=== PATIENT | female | born 1935 | race African-American/Black ===

== ENCOUNTER 2018-09-24 22:55 | Observation (INO) | payer MEDICARE, MEDICAID ==
[2018-09-25 00:51] VITALS: BMI 28.3
[2018-09-25] MEDS ORDERED: Acetaminophen 325 MG TAB PO PRN (00:52)
[2018-09-25 03:00] LABS: Cardiac Risk 4.5 (Less than 4.5)
[2018-09-25 03:04] LABS: Troponin I Less than 0.010 ng/mL (< 0.028)
[2018-09-25] MEDS ORDERED: Aspirin 325 MG TAB PO SCH (09:00)
[2018-09-25] MEDS ORDERED: Senokot S 8.6-50 MG TAB PO PRN (10:13)
[2018-09-25] MEDS ORDERED: ADENOSINE 60 MG/20 ML VIAL ONE (10:20)
[2018-09-25 12:43] VITALS: TEMP 98.3
--- NOTE | 2018-09-25 15:06 | NM ---
Radionucleotide stress and rest myocardial perfusion scan with CT attenuation correction and SPECT im aging Left ventricular wall motion evaluation and ejection fraction HISTORY: Chest pain. FINDINGS: Adenosine protocol. Heterogeneous uptake of radiotracer throughout the left myocardium and on both the stress and rest images. No focal perfusion defect or reversibility. QGS analysis of gated SPECT images shows no focal wall motion abnormalities. Ejection fraction calcul ated at 83%. IMPRESSION: Normal myocardial perfusion scan. Normal LVEF.
[2018-09-25 16:02] VITALS: BP 156/70
[2018-09-25] MEDS ORDERED: Famotidine 20 MG TAB PO SCH (21:00)
--- NOTE | 2018-09-26 04:33 | SS ---
DATE OF ADMISSION: 09/25/2018 DATE OF DISCHARGE: 09/25/2018 PROCEDURES: 1. The patient had a chest x-ray, no acute intrathoracic abnormality. 2. The patient also had a nuclear stress test, which showed normal myocardial perfusion scan. Ejection fraction calculated at 83%. CONSULTANTS: None. PRIMARY CARE PHYSICIAN: PCP in [place]. Reports, she also has a education counselor in [place] as well. HOSPITAL COURSE: The patient reported to the emergency room at [facility] ER for evaluation of heart palpitations and chest heaviness. She has a past medical history of GERD, high cholesterol, hypothyroidism, hypertension. Reports that she has had a stent placed about 15 years ago, CAD. Initial troponin was negative. Chest x-ray within normal limits. Denied any exacerbating or relieving factors. The patient was subsequently transferred for admission to the [facility] ER where she was admitted to the observation unit for further management. The patient underwent a stress test findings above. Troponins x3 are undetectable. EKG in the emergency room at [place] shows first-degree AV block, beats per minute 61, conduction was first-degree AV block, ST segments normal, axis is normal. The patient's vital signs and lab values remained within normal limits and stable. Negative stress test. The patient was discharged home to follow up with primary care and cardiology within the next 1 to 2 weeks. PAST MEDICAL HISTORY: GERD, high cholesterol, hypothyroidism, hypertension, CAD. SURGICAL HISTORY: Hernia repair hiatal, hysterectomy, stents x1, thyroid surgery. PSYCH HISTORY: None. SOCIAL HISTORY: Denies any alcohol or drug or smoking history. ALLERGIES: NO KNOWN DRUG ALLERGIES. HOME MEDICATIONS: Which will be restarted on discharge; 1. Aspirin 81 mg p.o. daily. 2. Plavix 75 mg p.o. daily. 3. Ferrous sulfate 325 mg p.o. daily. 4. Furosemide 40 mg p.o. b.i.d. 5. Lisinopril 20 mg p.o. daily. 6. Toprol-XL 25 mg p.o. daily. 7. Protonix 40 mg p.o. daily. 8. Potassium chloride 20 mEq p.o. daily. 9. Simvastatin 40 mg p.o. at bedtime. DISCHARGE DIAGNOSES: 1. Chest pain, unclear etiology. 2. Coronary artery disease. 3. Hypertension. 4. Hyperlipidemia. 5. Gastroesophageal reflux disease. 6. Chronic anticoagulation. REVIEW OF SYSTEMS: The patient denies any current chest pain. Does report some palpitations. Denies any syncope. Denies any abdominal pain, nausea, vomiting, diarrhea. Denies any shortness of breath. All other systems are reviewed and are negative unless mentioned in the hospital course. PHYSICAL EXAMINATION: VITAL SIGNS: Temperature is 98.3, pulse is 59, respirations 16, O2 sats are 96% on room air, blood pressure is 156/70. CONSTITUTIONAL: The patient appears nontoxic, appears pain free, is alert and oriented to person, place and time. HEENT: Head is atraumatic and normocephalic. Eyes; eyelids normal to inspection. Extraocular muscles are intact. ENT; mouth exam is normal. Mucous membranes are moist. NECK: Normal range of motion. Trachea is midline. RESPIRATORY/CHEST: Breath sounds are clear. Chest movement is symmetrical. CARDIOVASCULAR: Regular heart rate and rhythm. Heart sounds are normal. No murmurs. ABDOMEN: Nontender and soft. Bowel sounds are heard. BACK: Normal inspection. No tenderness is noted. EXTREMITIES: Upper extremities; normal motor strength, normal inspection. Radial pulses are equal. Lower extremities, motor strength is normal. Sensation is intact. No calf tenderness. Pedal pulses are equal. NEUROLOGIC: The patient is oriented to person, place, and time. No focal deficits are noted. SKIN: Warm, dry, normal in color. CONDITION: Stable. DISPOSITION: The patient will be discharged home. REFERRALS: The patient should follow up primary care and education counselor within the next 1 to 2 weeks. Job ID: [id number]
[2018-09-26] MEDS ORDERED: Enoxaparin Sodium 40 MG/0.4 ML SYRINGE SC SCH (09:00)
== END 2018-09-25 17:09 | disposition home or self-care (01) ==
LOC: ERS 22:55 → 2SW 09-25 00:37
PROVIDERS: ADMIT Hospitalist; ATTEND Hospitalist
DX: R07.9 Chest pain, unspecified (principal); R00.2 Palpitations; K21.9 Gastro-esophageal reflux disease without esophagitis; E78.00 Pure hypercholesterolemia, unspecified; E03.9 Hypothyroidism, unspecified; I10 Essential (primary) hypertension; Z79.02 Long term (current) use of antithrombotics/antiplatelets; Z79.82 Long term (current) use of aspirin; Z79.899 Other long term (current) drug therapy; Z95.5 Presence of coronary angioplasty implant and graft
CPT/HCPCS: 78452; 80061; 84443; 84484 ×2; 93005; 93017; 96360; 99285; A9500; G0378 ×2; 36415; J0153